=== PATIENT | male | born 1985 | race Two or more races ===

== ENCOUNTER 2019-05-07 16:17 | Emergency (ER) | payer SELFPAY ==
[~2019-05-07] VITALS: Ht 182.9 cm; Wt 122.5 kg
[2019-05-07] MEDS ORDERED: NKM (16:24)
[2019-05-07 16:36] VITALS: BP 156/105
--- NOTE | 2019-05-07 16:36 | NUR ---
ED Nurse Note: pt walked in to ED due to right hand injury. per pt, was riding skateboard and fell. metal punctured right hand. swelling and dried blood noted. no head injury reported. AAO x4. respirations even and non-labored noted. will wait for the further order.
[2019-05-07] MEDS ORDERED: HYDROcodone/Acetamin 5/325 tab ORAL ONE (17:00)
--- NOTE | 2019-05-07 17:30 | NUR ---
ED Nurse Note: at the bed side.
[2019-05-07] MEDS ORDERED: Bacitracin Oint 15gm Tube TOPIC ONE ×2 (17:45→18:00)
[2019-05-07] MEDS ORDERED: Lidocaine 1% 10mg/ml/Epi 0.005mg/ml 30ml vial INJ ONE ×2 (17:45→18:00)
--- NOTE | 2019-05-07 18:12 | Emergency Room Report ---
History of Present Illness General Chief Complaint: Upper Extremity Injury Source: Patient Present Illness HPI 33-year-old male with no significant past medical history here complaining of pain swelling and bleeding on right hand after cutting his himself with a piece of metal today as he was skateboarding. Patient reports that he was coming down with a skateboard as he fell and a piece of metal to metal went all the way through and he pulled it out. Patient is rating his pain 10 out of 10 with radiation denying tingling however reports that he is unable to bend his phone. Patient denies all other injuries, up-to-date with his tetanus shot and currently on no blood thinners. Denies chest pain, shortness of breath, dizziness, palpitation, and all other associated symptoms. Allergies: Coded Allergies: No Known Allergies (Unverified , 05/07/19) Patient History Past Medical History: see triage record Past Surgical History: unable to obtain Pertinent Family History: none Immunizations: UTD Reviewed Nursing Documentation: PMH: Agreed; PSxH: Agreed Nursing Documentation-PMH Past Medical History: No Stated History Review of Systems All Other Systems: negative except mentioned in HPI Physical Exam Vital Signs Date Time Temp Pulse Resp B/P (MAP) Pulse Ox O2 Delivery O2 Flow Rate FiO2 05/07/19 16:22 98.2 88 19 156/105 (122) 97 Room Air Sp02 EP Interpretation: reviewed, normal General Appearance: alert, GCS 15, moderate distress Head: normocephalic, atraumatic Eyes: bilateral eye normal inspection, bilateral eye PERRL ENT: normal ENT inspection, hearing grossly normal, normal pharynx Neck: normal inspection, full range of motion, supple Respiratory: normal inspection, chest non-tender, lungs clear, no rhonchi Cardiovascular #1: normal inspection, normal peripheral pulses, regular rate, rhythm, no murmur Cardiovascular #2: 2+ radial (R), 2+ radial (L) Gastrointestinal: normal inspection, non tender, soft Rectal: deferred Genitourinary: no CVA tenderness Musculoskeletal: back normal, inflammation - Deep laceration to the tendon of right thenar with scant amount of bleeding, clotting and inflammation Neurologic: normal inspection, alert, oriented x3, responsive, retail sales vitamin consultant III-XII nml as tested Psychiatric: normal inspection, judgement/insight normal, memory normal Skin: warm/dry, laceration - Deep laceration to the tendon of right thenar with scant amount of bleeding, clotting and inflammation Lymphatic: normal inspection, no adenopathy Procedures Laceration/Wound Repair Laceration/Wound Repair : Consent: Verbal Wound Location: upper extremity Wound's Depth, Shape: into muscle Wound Explored: contaminated Anesthesia: 1% Lidocaine Wound Debrided: extensive Wound Repaired With: sutures Layer Closure?: Yes Sterile Dressing Applied?: Yes Splint Applied?: No Sling Applied?: No Patient Tolerated: Well Complications: None Progress To laceration repair was done by Dr. Clement, and surgeon and patient to follow-up with him next week for deep layer closure and tendon repair. Medical Decision Making PA Attestation All my diagnosis and treatment plans were reviewed ad discussed with my supervising physician Dr. Lara Diagnostic Impression: Primary Impression: Laceration of deep palmar arch of right hand ER Course 33-year-old male with no significant past medical history here complaining of pain swelling and bleeding on right hand after cutting his himself with a piece of metal today as he was skateboarding. Patient reports that he was coming down with a skateboard as he fell and a piece of metal to metal went all the way through and he pulled it out. Patient is rating his pain 10 out of 10 with radiation denying tingling however reports that he is unable to bend his phone. Patient denies all other injuries, up-to-date with his tetanus shot and currently on no blood thinners. Denies chest pain, shortness of breath, dizziness, palpitation, and all other associated symptoms. Ddx considered but are not limited to : Superficial laceration, deep laceration , tendon involvement with laceration, laceration with foreign body Vital signs: are WNL, pt. is afebrile H&PE are most consistent with: Deep laceration of right thenar region ORDERS: X-ray right hand, [place], Keflex, Tylenol 3, ibuprofen ED INTERVENTIONS: [place], wound clean and dressed, superficial layer closure was done by Dr. Clement, due to excess clotting and inflammation of the hand patient to follow-up with Dr. Clement next week for deep layer closure as well as tendon repair patient to keep hand elevated above heart level DISCHARGE: At this time pt. is stable for d/c to home. Will provide printed patient care instructions, and any necessary prescriptions. Care plan and follow up instructions have been discussed with the patient prior to discharge. Other X-Ray Diagnostic Results Other X-Ray Diagnostic Results : X-Ray ordered: Right hand # of Views/Limited Vs Complete: 2 View Indication: Other - FB suspected EP Interpretation: Yes JILLIAN Xray: Interpretation reviewed, by supervising MD, and agrees with findings. Interpretation: no dislocation, no soft tissue swelling, no fractures Impression: No acute disease Electronically Signed by: ama severino PA-C Last Vital Signs Date Time Temp Pulse Resp B/P (MAP) Pulse Ox O2 Delivery O2 Flow Rate FiO2 05/07/19 16:36 98.2 88 19 156/105 97 Room Air Disposition: HOME, SELF-CARE Condition: Stable Scripts Cephalexin* (KEFLEX*) 500 Mg Capsule 500 MG ORAL EVERY 6 HOURS for 7 Days, #28 CAP Prov: Ama Giraldo 05/07/19 Ibuprofen (Ibuprofen) 800 Mg Tablet 800 MG PO BID, #30 TAB Prov: Ama Giraldo 05/07/19 Acetaminophen With Codeine (T#3) (TYLENOL #3 TAB*) Y Tab 1 TAB ORAL Q6HR PRN for For Pain for 4 Days, #15 TAB Prov: Ama Giraldo 05/07/19 Referrals: NOT CHOSEN IPA/,REFERRING (PCP) Patient Instructions: Laceration Care, Adult, [id number] Additional Instructions: Follow-up with Dr. Clement . Medication as directed avoid strenuous physical activity with the affected side keep area clean and avoid water exposure Ama Giraldo May 07, 2019 18:12
[2019-05-07] MEDS ORDERED: CEPHALEXIN500 MG ORAL (18:13)
[2019-05-07] MEDS ORDERED: IBUPROFEN800 M1 PO (18:13)
[2019-05-07] MEDS ORDERED: ACETAMINOPHEN-1 EAC1 ORAL (18:13)
[2019-05-07 18:23] VITALS: BP 144/98
--- NOTE | 2019-05-07 18:27 | NUR ---
ER DISCHARGE NOTE: Patient is cleared to be discharged per ERMD with friends, pt is aox4, on room air, with stable vital signs. pt was given dc and prescription instructions, pt was able to verbalize understanding, pt id band removed. pt is able to ambulate with steady gait. pt took all belongings.
--- NOTE | 2019-05-08 13:32 | Diagnostic Imaging Report ---
Indication: Right hand pain Findings: 3 views of the right hand were obtained. There is soft tissue swelling involving the dorsum of the hand and suggestion of a air due to laceration injury near the thumb. There is no fracture or radiopaque foreign body identified. IMPRESSION: Soft tissue injury
--- NOTE | 2019-05-09 15:15 | Operative Note - Dictated ---
DATE OF OPERATION: 05/07/2019 PREOPERATIVE DIAGNOSIS: Right hand laceration. POSTOPERATIVE DIAGNOSIS: Right hand laceration. PROCEDURE: Right hand exploration, wound debridement, evacuation of hematoma, and repair of laceration. SURGEON: Cristiano Clement M.D. AUTOMOTIVE PARTS COUNTER PERSON: None. ANESTHESIA: Local anesthesia consisting of 1% lidocaine with epinephrine for local regional field block. COMPLICATIONS: None. FINDINGS DURING THIS PROCEDURE: A 5 centimeter laceration of the first webspace of the right hand extends from the base of the index finger to the thumb. Sensation and flexor and extensor tendon functions to the right thumb and index finger appeared to be intact. Hematomas within the laceration. Thenar muscles are very swollen and bulging. Capillary refill appears to be intact in both the thumb and index finger of the right hand. SPECIMEN: None. OPERATIVE PROCEDURE NOTE IN DETAIL: The patient was prepped and draped in the usual sterile fashion after local anesthetic was injected in a local regional field block around the site of injury. Wound was irrigated and then all hematomas within the wound were carefully evacuated. After evacuating the hematoma, any nonviable tissue was debrided using sharp scissors. Next, 2-0 nylon horizontal mattress sutures were then used to close the laceration in the first web space of the right hand. This was done throughout the length of the incision. At the end of the procedure once the laceration was closed, antibiotic ointment was placed along the suture line covered with Xeroform gauze and then wrapped with gauze and Kerlix dressing. The patient tolerated the procedure well without any problems. The patient will be discharged and will follow up with me in the office for subsequent care. Cristiano Clement M.D. DR: JULIO CESAR JOB#: [id number] CC:
--- NOTE | 2019-05-10 00:45 | Consultation ---
DATE OF CONSULTATION: 05/07/2019 REASON FOR CONSULTATION: Right hand injury. HISTORY OF PRESENT ILLNESS: The patient is a 33-year-old male with no significant past medical history, who presented with bleeding and pain and swelling in his right hand. He cut himself on a piece of metal today while he was skateboarding. The patient reports that he was coming down with the skateboard when he fell and slashed his right hand on a metal and pulled it out. He denies any other injuries and he came to [facility] for evaluation and treatment. PAST MEDICAL HISTORY: None. PAST SURGICAL HISTORY: None. CURRENT MEDICATIONS: None. ALLERGIES TO MEDICATIONS: None. REVIEW OF SYSTEMS: As noted in the history of present illness. The remainder of the review of systems is normal. PHYSICAL EXAM: VITAL SIGNS: Temperature 98.2, pulse 88, respiratory rate 19, blood pressure 156/105, and pulse ox 97 percent on room air. HEENT: Head is normocephalic and atraumatic. No acute distress. Hemodynamically stable. Afebrile. Pupils are equal, round, and reactive to light bilaterally. NECK: Supple. Full range of motion. No gross deformities. RESPIRATORY: Clear to auscultation. No wheezes, rales, or crackles. CARDIOVASCULAR: Normal sinus rhythm. Normal S1, S2. No murmurs, rubs, or gallops. ABDOMEN: Soft, nontender, and nondistended. No guarding, rebound, or rigidity. EXTREMITIES: Full range of motion. No gross deformities. Examination of the right hand, he has approximately a 5 cm laceration along the right thumb and index finger in the first web space. The entire radial half of the hand is very swollen, edematous with very swollen muscles, difficult to ascertain anything, and no active bleeding. It showed some blood clots within the laceration. He is able to flex and extend his right thumb and index finger, also have intact sensation medially on the radial and ulnar side of both the ring finger and the thumb. Sensation was intact throughout the rest of the hands. ASSESSMENT/PLAN: The patient is a 33-year-old male, who has a laceration of the right hand first web space and it is very swollen with multiple blood clots, so we need to evacuate it. Muscle and tendons appeared to be intact. The only thing is, he is not able to abduct and adduct his thumb to the index finger. This is likely because of the swelling, no other deficits were noted. Laceration will be cleaned out, the hematoma evacuated, and then laceration will be closed. We will then allow a period of time for the swelling to subside and see if any muscle or tendinous injuries are present and explore and fix them at that time. Right now everything is too swollen and edematous to be able to see or do anything and any attempts at treatment of this injury would just cause more damage than good. The patient understands this and agrees with the plan. I will make arrangements to clean out the wound and suture the laceration and re-evaluate the hand injury at a later time once the right hand is less swollen. Cristiano Clement M.D. DR: JADEN JOB#: [id number] CC:
== END 2019-05-07 18:28 | disposition home or self-care (01) ==
LOC: EMR 17:44
DX: S61.411A Laceration without foreign body of right hand, initial encounter (principal); W26.9XXA Contact with unspecified sharp object(s), initial encounter; Y93.51 Activity, roller skating (inline) and skateboarding; Y92.9 Unspecified place or not applicable
CPT/HCPCS: 99283